=== PATIENT | male | born 1980 | race Caucasian/White ===

== ENCOUNTER 2017-11-19 19:08 | Emergency (ER) | payer MEDICAID, OTHER ==
[2017-11-19 20:15] VITALS: BP 128/73
--- NOTE | 2017-11-19 20:24 | UC ---
Upper Extremity HPI - HPI Summary HPI Summary: pt c/o pain to his R shoulder for about 2 weeks. it began after he rolled over while reaching. he did injured the shoulder about 8 years ago and has had some episodic discomfort since. pt also fx the R clavicle as a child. denies neck pain. - History of Current Complaint Chief Complaint: UCUpperExtremity Stated Complaint: RIGHT ARM PAIN Time Seen by Provider: 11/19/17 20:18 Hx Obtained From: Patient Onset/Duration: Sudden Onset Pain Intensity: 2 Aggravating Factor(s): Internal/External Rotation, Adduction Alleviating Factor(s): Rest - Risk Factors DVT Risk Factors: Negative Septic Arthritis Risk Factor: Negative - Allergies/Home Medications Allergies/Adverse Reactions: Allergies Allergy/AdvReac Type Severity Reaction Status Date / Time Penicillins Allergy Vomiting Verified 11/19/17 20:18 Home Medications: Home Medications Varenicline (NF) [Chantix 1 MG TAB (NF)] 1 mg PO DAILY 11/19/17 [History Confirmed 11/19/17] PMH/Surg Hx/FS Hx/Imm Hx - Additional Past Medical History Additional PMH: fx R clavicle, episodic R shoulder pain post injury 8 years ago. - Surgical History Surgical History: None - Family History Known Family History: Positive: Hypertension, Diabetes - Social History Occupation: Employed Full-time Alcohol Use: None Substance Use Type: None Smoking Status (MU): Heavy Every Day Tobacco Smoker Type: Cigarettes Amount Used/How Often: 1/2 PACK DAILY Household Exposure Type: Cigarettes - Immunization History Most Recent Tetanus Shot: 11/2015 Vaccination Up to Date: Yes Review of Systems Constitutional: Negative Skin: Negative Eyes: Negative ENT: Negative Respiratory: Negative Cardiovascular: Negative Gastrointestinal: Negative Genitourinary: Negative Motor: Negative Neurovascular: Negative Musculoskeletal: Other: - R shoulder pain Neurological: Negative Psychological: Negative Is Patient Immunocompromised?: No All Other Systems Reviewed And Are Negative: Yes Physical Exam Triage Information Reviewed: Yes Appearance: Well-Appearing Vital Signs: Initial Vital Signs Temp 98.1 F 11/19/17 20:09 Pulse 72 11/19/17 20:09 Resp 16 11/19/17 20:09 BP 128/73 11/19/17 20:09 Pulse Ox 99 11/19/17 20:09 Vital Signs Reviewed: Yes Eyes: Positive: Conjunctiva Clear ENT: Positive: Normal ENT inspection Neck: Positive: Supple, Nontender, No Lymphadenopathy Respiratory: Positive: Lungs clear, Normal breath sounds Cardiovascular: Positive: RRR, No Murmur Abdomen Description: Positive: Nontender, No Organomegaly, Soft Bowel Sounds: Positive: Present Musculoskeletal: Positive: Other: - Bare from waist up: R clavicle deformity to lateral half. mm flattening R superior medial scapular areas compared to left. Mild tenderness over R deltoid. RUE passive ROM intact but active rom, abduction and external rotation reproduces and worsens pain but full rom is intact. Neg anterior stress. + drop arm. 5/5 strenght and 2+ reflexes RUE. s/v intact as well. Neurological: Positive: Alert Psychological: Positive: Age Appropriate Behavior Skin Exam: Normal Diagnostics - Radiology No standard instances Xray Interpretation: No Acute Changes Radiology Interpretation Completed By: Radiologist - R shoulder Upper Extremity Course/Dx - Course Course Of Treatment: exam raises concern for rotator cuff pathology. nad on shoulder xray. will tx nsaid, mm relaxor and PT. - Differential Dx/Diagnosis Provider Diagnoses: R shoulder pain. Possible rotator cuff injury Discharge - Sign-Out/Discharge Documenting (check all that apply): Discharge/Admit/Transfer - Discharge Plan Condition: Stable Disposition: HOME Prescriptions: Cyclobenzaprine TAB* [Flexeril 10 MG TAB*] 10 mg PO TID PRN #10 tab PRN Reason: Spasms - Muscle Naproxen [Naprosyn 500 mg tab] 500 mg PO BID #14 tablet Patient Education Materials: Rotator Cuff Injury (ED) Forms: *Work Release Referrals: Liberty Mike MD [Primary Care Provider] - 7 Days - Billing Disposition and Condition Condition: STABLE Disposition: HOME
[2017-11-19] MEDS ORDERED: Ibuprofen ADULT LIQ* 600 MG/30 ML UDC PO ONE (20:32)
--- NOTE | 2017-11-19 21:15 | RAD ---
Indication: Right shoulder pain. 4 views of the right shoulder demonstrates no fracture or dislocation. No other bone or joint abnormality is identified. IMPRESSION: No fracture of the right shoulder is noted.
== END 2017-11-19 20:55 | disposition home or self-care (01) ==
LOC: UCCORT 19:08
DX: M25.511 Pain in right shoulder (principal); F17.210 Nicotine dependence, cigarettes, uncomplicated; Z88.0 Allergy status to penicillin
CPT/HCPCS: 99212; A9270-GY; G0463